=== PATIENT | female | born 1995 | race Two or more races ===

== ENCOUNTER → 2022-11-05 08:45 | Outpatient (REF) | payer OTHER, SELFPAY ==
--- NOTE | 2022-11-05 08:50 | CA_ITS ---
Acquisition Time: 2022-11-05 09:07:20 Total Exercise Time: 00:09:49 Test Indications: Abnormal ECG TACHYCARDIA Medications: NONE Protocol: SADE Max HR: 193 BPM 98% of Pred: 195 BPM Max BP: 162/074 mmHG Max Work Load: 11.4 METS Exercise stress test using Sade protocol total of 9 min 49 sec. METS 11.4 and TAPHR up to 98 %. Pt tolerated well deenied any cardiac sx during or post exercise. Noarrhythmias. Normotensive response to exercise. Test reviewed with Dr. Garcia Referred By: [place] Overread By: Marivel Seo NP
== END ==
LOC: HO.CARD 08:45
PROVIDERS: PCP Internal Medicine; Visit Provider Internal Medicine
DX: R06.02 Shortness of breath (principal)
CPT/HCPCS: 93017

== ENCOUNTER → 2022-11-05 08:50 | Outpatient (BNV) | payer OTHER, SELFPAY | PROVIDERS: PCP Internal Medicine; Visit Provider Nurse Practitioner Family | DX: R00.0 Tachycardia, unspecified (principal); R94.31 Abnormal electrocardiogram [ECG] [EKG] | CPT/HCPCS: 93016; 93018 ==